=== PATIENT | female | born 1970 | race Two or more races ===

== ENCOUNTER 2017-03-10 13:25 | Emergency (ER) | payer OTHER ==
[~2017-03-10] VITALS: Ht 180.3 cm; Wt 113.4 kg
[2017-03-10] MEDS ORDERED: NKM (13:33)
[2017-03-10 13:38] VITALS: BP 128/73
--- NOTE | 2017-03-10 13:42 | Emergency Room Report ---
History of Present Illness General Chief Complaint: Pain Source: Patient (MAT KELLY) Present Illness HPI The patient is a 46-year-old female presenting for right foot pain. She states that this began approximately 2 months prior for no known reason and has been increasing. Pain is a 10 out of 10 dull ache to the right heel and is worse with walking. No radiating pain. She denies any injury to the area. She has used motrin which does help. She denies any other symptoms including calf pain, swelling, rash, fever, chills , numbness (MAT KELLY) Allergies: Coded Allergies: No Known Allergies (Unverified , 03/10/17) Patient History Past Medical History: see triage record Pertinent Family History: none Last Menstrual Period: Menopausal Now: No Reviewed Nursing Documentation: PMH: Agreed, PSxH: Agreed (MAT KELLY) Nursing Documentation-PMH Hx Gastrointestinal Problems: Yes - Tracy (MAT KELLY) Review of Systems All Other Systems: negative except mentioned in HPI (MAT KELLY) Physical Exam Vital Signs Date Time Temp Pulse Resp B/P (MAP) Pulse Ox O2 Delivery O2 Flow Rate FiO2 03/10/17 13:28 98.1 91 16 128/73 97 Room Air Sp02 EP Interpretation: reviewed, normal General Appearance: no apparent distress, alert, GCS 15, non-toxic Head: normocephalic, atraumatic Eyes: bilateral eye normal inspection, bilateral eye PERRL Musculoskeletal: normal inspection, normal range of motion, no calf tenderness , tender - R mid sole of foot Neurologic: alert, oriented x3, responsive, motor strength/tone normal, sensory intact, speech normal Psychiatric: judgement/insight normal, memory normal, mood/affect normal, no suicidal/homicidal ideation Skin: normal color, no rash, warm/dry, well hydrated (MAT KELLY) Medical Decision Making PA Attestation Dr. Concepcion is my supervising physician. Patient management was discussed with my supervising physician (MAT KELLY) Diagnostic Impression: Primary Impression: Bone spur of foot ER Course The patient is a 46-year-old female presenting for right foot pain. Ddx considered include but not limited to sprain/strain, fracture, contusion, foreign body, spur, among others PE: NAD TTP over the R mid sole of foot. No edema. No skin changes. Full AROM. X-ray of the right foot shows bone spur and possible accessory bone Cast shoe placed and patient is given crutches. She was told she is to followup with podiatry. ER precautions given (MAT KELLY P.A.) ER Course I have reviewed the PA's interpretation of Xray results and agree with findings. (Dominick Concepcion M.D.) Other X-Ray Diagnostic Results Other X-Ray Diagnostic Results : X-Ray ordered: R foot # of Views/Limited Vs Complete: 3 View Indication: Pain EP Interpretation: Yes PA Xray: Interpretation reviewed, by supervising MD, and agrees with findings. Interpretation: no dislocation, no soft tissue swelling, no fractures, other - bone spur Impression: No acute disease Electronically Signed by: WHIT Tejeda Scribe Text I have reviewed the xray with my supervising physician and interpretation is that there are no fractures, dislocations or soft tissue swelling. There is a bone spur with possible accessory bone (MAT KELLY P.A.) Last Vital Signs Date Time Temp Pulse Resp B/P (MAP) Pulse Ox O2 Delivery O2 Flow Rate FiO2 03/10/17 13:38 98.1 80 16 128/73 97 Room Air Status: improved (MAT KELLY P.A.) Disposition: HOME, SELF-CARE Condition: Improved Scripts Tramadol Hcl* (ULTRAM*) 50 Mg Tablet 50 MG ORAL Q6H Y for For Pain, #10 TAB 0 Refills Prov: ROSI KELLYY P.A. 03/10/17 Ibuprofen* (MOTRIN*) 600 Mg Tablet 600 MG ORAL Q8H Y for For Pain, #30 TAB 0 Refills Prov: NAAN,MAT P.A. 03/10/17 MAT KELLY P.A. Mar 10, 2017 13:42 Dominick Concepcion M.D. Mar 13, 2017 06:45
[2017-03-10] MEDS ORDERED: IBUPROFEN600 MG ORAL (14:15)
[2017-03-10] MEDS ORDERED: TRAMADOL HCL50 MG ORAL (14:15)
[2017-03-10 14:35] VITALS: BP 128/73
--- NOTE | 2017-03-11 10:09 | Diagnostic Imaging Report ---
Indication: PAIN Technique: 3 views right foot Comparison: none Findings: There is hammertoe deformity of the second through fifth digits. No acute fractures or dislocations. Joint spaces are preserved. There are small plantar and calcaneal spurs. Impression: No acute process
== END 2017-03-10 14:46 | disposition home or self-care (01) ==
LOC: EMR 13:36
DX: M77.51 Other enthesopathy of right foot and ankle (principal)
CPT/HCPCS: 99283

== ENCOUNTER 2018-04-12 13:55 | Emergency (ER) | payer OTHER ==
[~2018-04-12] VITALS: Ht 180.3 cm; Wt 90.7 kg
[~2018-04-12 13:55] MED LIST: IBUPROFEN600 MG ORAL; NKM; TRAMADOL HCL50 MG ORAL
[2018-04-12 14:30] VITALS: BP 150/75
[2018-04-12] MEDS ORDERED: IBUPROFEN600 MG ORAL (16:04)
[2018-04-12 16:13] VITALS: BP 121/72
--- NOTE | 2018-04-12 16:22 | Diagnostic Imaging Report ---
EXAM: XR Right Ankle Complete, 3 or More Views CLINICAL HISTORY: PAIN TECHNIQUE: Frontal, lateral and oblique views of the right ankle. COMPARISON: No relevant prior studies available. FINDINGS: Bones/joints: Plantar calcaneal spur. No acute fracture. No dislocation. Soft tissues: Lateral soft tissue swelling. No radiopaque foreign body. IMPRESSION: No fracture or dislocation
--- NOTE | 2018-04-12 18:22 | Emergency Room Report ---
History of Present Illness General Chief Complaint: Lower Extremity Injury Source: Patient Present Illness [facility] The patient is a 47-year-old female presenting for right ankle pain. She states that she was walking downstairs yesterday and her right ankle buckled underneath her. She denies any other injury. She noticed swelling soon after. Pain is an 8 out of 10 dull ache and does not radiate. She denies any other symptoms including numbness or tingling Allergies: Coded Allergies: No Known Allergies (Unverified , 03/10/17) Patient History Past Medical History: see triage record Pertinent Family History: none Last Menstrual Period: menopause Reviewed Nursing Documentation: PMH: Agreed; PSxH: Agreed Nursing Documentation-PMH Past Medical History: No Stated History Hx Gastrointestinal Problems: Yes - Tracy Review of Systems All Other Systems: negative except mentioned in HPI Physical Exam Vital Signs Date Time Temp Pulse Resp B/P (MAP) Pulse Ox O2 Delivery O2 Flow Rate FiO2 04/12/18 14:30 98.0 80 18 150/75 95 Room Air Sp02 EP Interpretation: reviewed, normal General Appearance: no apparent distress, alert, GCS 15, non-toxic Head: normocephalic, atraumatic Musculoskeletal: normal range of motion, swelling, tender - R ankle lateral Neurologic: alert, oriented x3, responsive, motor strength/tone normal, sensory intact, speech normal Psychiatric: judgement/insight normal, memory normal, mood/affect normal, no suicidal/homicidal ideation Skin: normal color, no rash, warm/dry, well hydrated Procedures Splinting Splinting : Consent: Verbal Location: R ankle Pre-Made Type: aircast Pre-Proc Neuro Vasc Exam: normal Post-Proc Neuro Vasc Exam: normal Patient Tolerated: Well Complications: None Medical Decision Making PA Attestation Dr. Stauffer is my supervising physician. Patient management was discussed with my supervising physician Diagnostic Impression: Primary Impression: Ankle sprain Qualified Codes: S93.401A - Sprain of unspecified ligament of right ankle, initial encounter ER Course The patient is a 47-year-old female presenting for right ankle pain Ddx considered include but not limited to sprain/strain, fracture, contusion Physical exam: Vitals within normal limits. No apparent distress R ankle: There is tenderness to palpation and edema over the R lateral malleolus. Limited active range of motion. Sensation intact to light touch. X-ray of the R ankle shows no fracture R ankle placed in splint wrap and the patient is provided crutches. ER precautions are given. Patient given prescription for Motrin and will follow up with primary care physician. Other X-Ray Diagnostic Results Other X-Ray Diagnostic Results : # of Views/Limited Vs Complete: 3 View, Complete Indication: Pain EP Interpretation: Yes PA Xray: Interpretation reviewed, by supervising MD, and agrees with findings. Interpretation: no dislocation, no soft tissue swelling, no fractures Impression: No acute disease Electronically Signed by: Da Kelly PA-C Last Vital Signs Date Time Temp Pulse Resp B/P (MAP) Pulse Ox O2 Delivery O2 Flow Rate FiO2 04/12/18 16:13 97.8 75 17 121/72 99 Room Air Status: improved Disposition: HOME, SELF-CARE Condition: Improved Scripts Ibuprofen* (MOTRIN*) 600 Mg Tablet 600 MG ORAL Q8H PRN for For Pain, #30 TAB 0 Refills Prov: DA KELLY 04/12/18 Referrals: DARNELL LEE,REFERRING (PCP) Patient Instructions: Ankle Sprain Additional Instructions: I discussed my findings with the patient. All questions and concerns have been answered. Treatment and medication compliance have been addressed. I advised the patient that they need to follow up with PMD in 3-5 days. Return to ED if pain remains or worsens, numbness or tingling occurs, new rash is noticed, fever is noticed, or if needed for any reason. Patient verbalized understanding of discharge instructions. DA KELLY Apr 12, 2018 18:22
== END 2018-04-12 16:15 | disposition home or self-care (01) ==
LOC: EMR 16:06
DX: S93.401A Sprain of unspecified ligament of right ankle, initial encounter (principal); X58.XXXA Exposure to other specified factors, initial encounter; Y92.9 Unspecified place or not applicable; Z90.49 Acquired absence of other specified parts of digestive tract
CPT/HCPCS: 29515; 99283